=== PATIENT | female | born 1985 | race American Indian/Alaskan Native ===

== ENCOUNTER 2020-02-18 21:26 | Emergency (ER) | payer SELFPAY ==
[2020-02-18 23:13] LABS: Bilirubin,Urine NEG (Negative); Blood,Urine SM (Negative); Color,Urine Yellow (Yellow); HCG Qualitative,Urine Negative (Negative); Mucus,Urine FEW /HPF; Protein,Urine <15 mg/dL mg/dL (Negative)
[2020-02-18] MEDS ORDERED: LIDOCAINE-MPF (1%) 10 MG/1 ML VIAL 5 ML INFILTRATI ONE (23:30)
[2020-02-19] MEDS ORDERED: ONDANSETRON 4 MG ODT TAB PO ONE (01:11)
[2020-02-19] MEDS ORDERED: metroNIDAZOLE 500 MG TAB PO ONE (01:11)
--- NOTE | 2020-02-19 01:55 | Emergency Department Report ---
ED Female HPI - General Chief complaint: Urogenital-Female Stated complaint: STD TEST Source: patient Mode of arrival: Ambulatory Limitations: No Limitations - History of Present Illness Initial comments: Patient is a A0 34-year-old -[place] female with no past medical history presents to the ED with complaint of acute onset persistent pelvic discomfort and vaginal discharge for the last 4 days. Patient states that she was also informed by her longtime boyfriend to get checked for STD because he had been treated for the same about 2 weeks ago. Patient states that she does not have any other sexual partner apart from her longtime boyfriend who is suspected for being treated for STD. Patient admits that she is in a long distance relationship with her boyfriend. Patient denies nausea, vomiting, vaginal bleeding, dizziness, syncope, urinary frequency and urgency, fever, chills, dyspareunia, change in vision, diarrhea, or dysuria. MD Complaint: vaginal discharge, pelvic pain, possible STD -: Sudden, days(s) (4) Location: other (vaginal) Radiation: non-radiating Severity: moderate Severity scale (0 -10): 3 Quality: dull Consistency: intermittent Improves with: none Worsens with: none Are you Now?: No Last Menstrual Period: 02/13/20 EDC: 11/19/20 Associated Symptoms: denies other symptoms, vaginal discharge, abdominal pain (suprapubic discomfort). denies: vaginal bleeding, nausea/vomiting, fever/chills, headaches, loss of appetite, dysuria, hematuria, seizure, shortness of breath, syncope, weakness - Related Data Previous Rx's Medication Instructions Recorded Last Taken Type Doxycycline Hyclate 100 mg PO Q12H #20 tablet. 02/19/20 Unknown Rx Fluconazole (Nf) [Diflucan TAB] 150 mg PO ONCE #1 tablet 02/19/20 Unknown Rx Ondansetron [Zofran Odt] 4 mg PO Q6HR PRN #15 tab.rapdis 02/19/20 Unknown Rx cephALEXin [Keflex] 500 mg PO Q8HR #30 cap 02/19/20 Unknown Rx metroNIDAZOLE [Flagyl] 500 mg PO Q12HR #14 tab 02/19/20 Unknown Rx Allergies Allergy/AdvReac Type Severity Reaction Status Date / Time No Known Allergies Allergy Unverified 02/18/20 22:42 ED Review of Systems ROS: Stated complaint: STD TEST Other details as noted in HPI Constitutional: denies: chills, fever Eyes: denies: eye pain, eye discharge, vision change ENT: denies: ear pain, throat pain Respiratory: denies: cough, shortness of breath, wheezing Cardiovascular: denies: chest pain, palpitations Endocrine: no symptoms reported Gastrointestinal: abdominal pain (suprapubic discomfort). denies: nausea, vomiting, diarrhea Genitourinary: urgency, frequency, discharge. denies: dysuria Musculoskeletal: denies: back pain, joint swelling, arthralgia Skin: denies: rash, lesions Neurological: denies: headache, weakness, paresthesias Psychiatric: denies: anxiety, depression Hematological/Lymphatic: denies: easy bleeding, easy bruising ED Past Medical Hx - Past Medical History Previous Medical History?: No - Surgical History Past Surgical History?: No - Social History Smoking Status: Never Smoker Substance Use Type: None - Medications Home Medications: Home Medications Medication Instructions Recorded Confirmed Last Taken Type Doxycycline Hyclate 100 mg PO Q12H #20 tablet.dr 02/19/20 Unknown Rx Fluconazole (Nf) [Diflucan TAB] 150 mg PO ONCE #1 tablet 02/19/20 Unknown Rx Ondansetron [Zofran Odt] 4 mg PO Q6HR PRN #15 tab.rapdis 02/19/20 Unknown Rx cephALEXin [Keflex] 500 mg PO Q8HR #30 cap 02/19/20 Unknown Rx metroNIDAZOLE [Flagyl] 500 mg PO Q12HR #14 tab 02/19/20 Unknown Rx ED Physical Exam - General Limitations: No Limitations General appearance: alert, in no apparent distress - Head Head exam: Present: atraumatic, normocephalic, normal inspection - Eye Eye exam: Present: normal appearance, PERRL, EOMI Pupils: Present: normal accommodation - ENT ENT exam: Present: normal exam, normal orophraynx, mucous membranes moist, TM's normal bilaterally, normal external ear exam - Neck Neck exam: Present: normal inspection, full ROM - Respiratory Respiratory exam: Present: normal lung sounds bilaterally. Absent: respiratory distress, wheezes, rhonchi, chest wall tenderness, accessory muscle use - Cardiovascular Cardiovascular Exam: Present: regular rate, normal rhythm, normal heart sounds. Absent: systolic murmur, diastolic murmur, rubs, gallop - GI/Abdominal GI/Abdominal exam: Present: soft, normal bowel sounds. Absent: tenderness, guarding, rebound, hyperactive bowel sounds - External exam: Present: normal external exam Speculum exam: Present: vaginal discharge, cervical discharge Bi-manual exam: Present: normal bi-manual exam, other (Female RN explosive ordnance manager Ms. Barry present) - Extremities Exam Extremities exam: Present: normal inspection, full ROM, normal capillary refill - Back Exam Back exam: Present: normal inspection, full ROM. Absent: tenderness, CVA tenderness (R), muscle spasm, paraspinal tenderness, vertebral tenderness - Neurological Exam Neurological exam: Present: alert, oriented X3, CN II-XII intact, normal gait, reflexes normal - Psychiatric Psychiatric exam: Present: normal affect, normal mood - Skin Skin exam: Present: warm, dry, intact, normal color. Absent: rash ED Course Vital Signs 02/18/20 22:23 Temperature 98.5 F Pulse Rate 99 H Respiratory 18 Rate Blood Pressure 131/80 O2 Sat by Pulse 97 Oximetry ED Medical Decision Making - Medical Decision Making This is a A0 34-year-old -[place] female with no past medical history presents to the ED with complaint of acute onset persistent pelvic discomfort and vaginal discharge for the last 4 days. Patient states that she was also informed by her longtime boyfriend to get checked for STD because he had been treated for the same about 2 weeks ago. Patient states that she does not have any other sexual partner apart from her longtime boyfriend who is suspected for being treated for STD. Patient admits that she is in a long distance relationship with her boyfriend. In the ED, patient is alert and oriented x3 and is not in distress. Urinalysis shows urinary tract infection. Wet prep was positive for trichomonas and Gardnerella vaginalis. Chlamydia and gonorrhea tests are pending. Patient was empirically treated for gonorrhea in the ED with Rocephin, and was also treated in the ED for trichomonas with Flagyl. Patient was discharged home on oral antibiotics for chlamydia, urinary tract infection and bacterial vaginosis and was advised to follow-up with [facility] physician or primary care physician in 7 to 10 days for reevaluation. Patient was also encouraged to obtain an HIV test at the health department. Patient was otherwise advised to return to the ED immediately if symptoms get worse. - Differential Diagnosis UTI; PID; Bacterial vaginosis; STD; Trichomonasis; thaddeus vaginitis Critical care attestation.: If time is entered above; I have spent that time in minutes in the direct care of this critically ill patient, excluding procedure time. ED Disposition Clinical Impression: Trichomonas infection, Acute urinary tract infection, Bacterial vaginosis, STD (sexually transmitted disease) Disposition: - TO HOME OR SELFCARE Is pt being admited?: No Does the pt Need Aspirin: No Condition: Stable Instructions: Bacterial Vaginosis (ED), Trichomoniasis (ED), Sexually Transmitted Diseases (ED), Cervicitis (ED), Urinary Tract Infection in Women (ED) Additional Instructions: Take medication with food, drink plenty of fluids and follow-up with your primary care physician or [facility] physician in 7 to 10 days for reevaluation. Return to the ED immediately if symptoms get worse. Practices safe sexual intercourse Prescriptions: Fluconazole (Nf) [Diflucan TAB] 150 mg PO ONCE #1 tablet Doxycycline Hyclate 100 mg PO Q12H #20 tablet. metroNIDAZOLE [Flagyl] 500 mg PO Q12HR #14 tab cephALEXin [Keflex] 500 mg PO Q8HR #30 cap Ondansetron [Zofran Odt] 4 mg PO Q6HR PRN #15 tab.rapdis PRN Reason: Nausea Referrals: [facility] [Provider Group] - 3-5 Days Forms: STI Treatment and Prevention Time of Disposition: 01:52 Print Language: GREENLAND[place]
[2020-02-19 02:31] VITALS: BP 135/75
== END 2020-02-19 02:31 | disposition home or self-care (01) ==
LOC: ED 21:26
DX: N39.0 Urinary tract infection, site not specified (principal); N76.0 Acute vaginitis; B96.89 Other specified bacterial agents as the cause of diseases classified elsewhere; A63.8 Other specified predominantly sexually transmitted diseases
CPT/HCPCS: 81001; 81025; 87086; 87210; 87591; 96372; 99284; J0696; Q0162